=== PATIENT | male | born 1955 | race Caucasian/White ===

== ENCOUNTER 2017-12-24 19:26 | Emergency (ER) | payer MEDICARE ==
[2017-12-24 20:54] LABS: BASO % 0.6 % (0.0-1.0); EOS # 0.1 10^3/uL (0.0-0.50); HEMATOCRIT 42.9 % (42.0-52.0); HEMOGLOBIN 14.1 g/dl (13.5-17.5); IMMATURE GRANULOCYTE % 0.9 % (0-3.0); LYMPH # 1.9 10^3/uL (1.5-4.5); LYMPH % 27.8 % (24.0-44.0); MEAN CORPUSCULAR HEMOGLOBIN 27.4 pg (27.0-33.0); MEAN CORPUSCULAR HGB CONC 32.9 g/dl (32.0-36.5); MEAN CORPUSCULAR VOLUME 83.5 fl (80.0-96.0); MONO # 0.4 10^3/uL (0.0-0.8); MONO % 5.9 % (0.0-5.0); NEUTROPHILS # 4.2 10^3/uL (1.8-7.7); NEUTROPHILS % 62.8 % (36.0-66.0); PLATELET COUNT, AUTOMATED 199 10^3/uL (150-450); RED BLOOD COUNT 5.14 10^6/uL (4.30-6.10); RED CELL DISTRIBUTION WIDTH 13.8 % (11.5-14.5); WHITE BLOOD COUNT 6.7 10^3/uL (4.0-10.0)
[2017-12-24 21:10] LABS: INR 0.89; PARTIAL THROMBOPLASTIN TIME 26.4 SECONDS (25.4-37.6); PROTHROMBIN TIME 12.1 SECONDS (12.1-14.4)
[2017-12-24 21:12] LABS: ANION GAP 7 MEQ/L (8-16); BLOOD UREA NITROGEN 21 MG/DL (7-18); CALCIUM LEVEL 8.7 MG/DL (8.8-10.2); CARBON DIOXIDE LEVEL 26 MEQ/L (21-32); CHLORIDE LEVEL 111 MEQ/L (98-107); CK-MB VALUE MASS 1.4 NG/ML (<3.6); CPK CREATINE PHOSPHOKINASE 51 U/L (39-308); CREATININE FOR GFR 1.12 MG/DL (0.70-1.30); GLOMERULAR FILTRATION RATE > 60.0 (>49); GLUCOSE, FASTING 234 MG/DL (70-100); MB/CK RELATIVE INDEX 2.74 (< OR =4); POTASSIUM SERUM 4.8 MEQ/L (3.5-5.1); SODIUM LEVEL 144 MEQ/L (136-145); TROPONIN I < 0.02 NG/ML (< 0.10)
[2017-12-24] MEDS: dexameTHASONE 20 MG/5 ML VIAL (J1100) IV (21:13)
[2017-12-24] MEDS: ASPIRIN 325 MG TAB PO (21:13)
[2017-12-24] MEDS ORDERED: ISOVUE-370 76% 100ML VIAL (Q9967) As Ordered (21:31)
[2017-12-24] MEDS: ALBUTEROL SULFATE 2.5 MG/0.5 ML INH NEB SOLN NEB (22:49)
[2017-12-24] MEDS: HYDROMORPHONE HCL 0.5 MG/ 0.5 ML SYRINGE (J1170 PER 1) IV (23:03)
[2017-12-25] MEDS ORDERED: ALBUTEROL SULFATE 2.5 MG/0.5 ML INH NEB SOLN NEB (01:00)
[2017-12-25 01:02] LABS: CK-MB VALUE MASS 1.4 NG/ML (<3.6); CPK CREATINE PHOSPHOKINASE 34 U/L (39-308); MB/CK RELATIVE INDEX 4.11 (< OR =4); TROPONIN I < 0.02 NG/ML (< 0.10)
[2017-12-25] MEDS: ALBUTEROL SULFATE 2.5 MG/0.5 ML INH NEB SOLN NEB (01:05)
[2017-12-25] MEDS: HYDROMORPHONE HCL 0.5 MG/ 0.5 ML SYRINGE (J1170 PER 1) IV ×2 (01:46→03:28)
[2017-12-25 01:57] LABS: ABG BASE EXCESS -5.1 (-2.0-2.0); ABG HCO3 21.1 MEQ/L (22.0-26.0); ABG O2 SATURATION 98.7 % (95.0-99.0); ABG PARTIAL PRESSURE CO2 43.4 mmHg (35.0-45.0); ABG PARTIAL PRESSURE O2 137.1 mmHg (75.0-100.0); ABG STANDARD HCO3 20.3 MEQ/L (22.0-26.0); ABG TOTAL CO2 22.4 MEQ/L (23.0-31.0); ABG pH (ARTERIAL) 7.304 UNITS (7.350-7.450)
[2017-12-25 04:35] LABS: CPK CREATINE PHOSPHOKINASE 34 U/L (39-308); TROPONIN I < 0.02 NG/ML (< 0.10)
[2017-12-25 04:36] LABS: CK-MB VALUE MASS 1.6 NG/ML (<3.6)
== END 2017-12-25 05:40 | disposition left against medical advice (07) ==
LOC: M ED 12-25 05:40
DX: J44.1 Chronic obstructive pulmonary disease with (acute) exacerbation (principal); R07.89 Other chest pain; R06.02 Shortness of breath; I11.9 Hypertensive heart disease without heart failure; I48.91 Unspecified atrial fibrillation; E11.9 Type 2 diabetes mellitus without complications; E78.5 Hyperlipidemia, unspecified; N40.0 Benign prostatic hyperplasia without lower urinary tract symptoms; K21.9 Gastro-esophageal reflux disease without esophagitis; F17.200 Nicotine dependence, unspecified, uncomplicated; Z99.81 Dependence on supplemental oxygen; Z88.5 Allergy status to narcotic agent; Z88.8 Allergy status to other drugs, medicaments and biological substances; Z88.1 Allergy status to other antibiotic agents; Z79.899 Other long term (current) drug therapy; Z79.02 Long term (current) use of antithrombotics/antiplatelets; Z79.4 Long term (current) use of insulin; Z79.01 Long term (current) use of anticoagulants; Z95.5 Presence of coronary angioplasty implant and graft
CPT/HCPCS: J1100

== ENCOUNTER 2018-01-16 16:06 | Emergency (ER) | payer MEDICARE, OTHER ==
[2018-01-16] MEDS ORDERED: ONDANSETRON 4MG/2ML VIAL (J2405) As Ordered (17:01)
[2018-01-16] MEDS: fentaNYL 100 MCG/2 ML INJECTION (J3010) IV ×2 (17:05→18:19)
[2018-01-16 17:08] LABS: BASO # 0.1 10^3/uL (0.0-0.2); BASO % 0.8 % (0.0-1.0); EOS # 0.1 10^3/uL (0.0-0.50); EOS % 1.8 % (0.0-3.0); HEMATOCRIT 47.1 % (42.0-52.0); HEMOGLOBIN 15.9 g/dl (13.5-17.5); IMMATURE GRANULOCYTE % 1.2 % (0-3.0); LYMPH % 26.4 % (24.0-44.0); MEAN CORPUSCULAR HGB CONC 33.8 g/dl (32.0-36.5); MEAN CORPUSCULAR VOLUME 82.9 fl (80.0-96.0); MONO # 0.5 10^3/uL (0.0-0.8); MONO % 6.2 % (0.0-5.0); NEUTROPHILS # 4.8 10^3/uL (1.8-7.7); NEUTROPHILS % 63.6 % (36.0-66.0); PLATELET COUNT, AUTOMATED 270 10^3/uL (150-450); RED BLOOD COUNT 5.68 10^6/uL (4.30-6.10); RED CELL DISTRIBUTION WIDTH 14.3 % (11.5-14.5); WHITE BLOOD COUNT 7.6 10^3/uL (4.0-10.0)
[2018-01-16] MEDS: ONDANSETRON 4MG/2ML VIAL (J2405) IV (17:08)
[2018-01-16] MEDS: LORazepam 2 MG/ML VIAL (J2060) IV (17:21)
[2018-01-16 17:42] LABS: ALBUMIN 3.6 GM/DL (3.2-5.2); ALBUMIN/GLOBULIN RATIO 1.16 (1.00-1.93); ALKALINE PHOSPHATASE 95 U/L (45-117); ALT/SGPT 22 U/L (12-78); ANION GAP 11 MEQ/L (8-16); AST/SGOT 11 U/L (7-37); BILIRUBIN,DIRECT < 0.1 MG/DL (0.0-0.2); BILIRUBIN,TOTAL 0.3 MG/DL (0.2-1.0); BLOOD UREA NITROGEN 15 MG/DL (7-18); CALCIUM LEVEL 8.9 MG/DL (8.8-10.2); CARBON DIOXIDE LEVEL 20 MEQ/L (21-32); CHLORIDE LEVEL 111 MEQ/L (98-107); CPK CREATINE PHOSPHOKINASE 55 U/L (39-308); CREATININE FOR GFR 0.88 MG/DL (0.70-1.30); GLOMERULAR FILTRATION RATE > 60.0 (>49); GLUCOSE, FASTING 130 MG/DL (70-100); LIPASE 111 U/L (73-393); POTASSIUM SERUM 4.9 MEQ/L (3.5-5.1); SODIUM LEVEL 142 MEQ/L (136-145); TOTAL PROTEIN 6.7 GM/DL (6.4-8.2); TROPONIN I < 0.02 NG/ML (< 0.10)
[2018-01-16 17:48] LABS: CK-MB VALUE MASS < 1.0 NG/ML (<3.6); MB/CK RELATIVE INDEX 1.81 (< OR =4); NT-PRO BNP 70 PG/ML (<125)
[2018-01-16 17:50] LABS: INR 0.91; PROTHROMBIN TIME 12.3 SECONDS (12.1-14.4)
[2018-01-16] MEDS ORDERED: ISOVUE-370 76% 100ML VIAL (Q9967) As Ordered (17:59)
[2018-01-16] MEDS: HYDROMORPHONE HCL 0.5 MG/ 0.5 ML SYRINGE (J1170 PER 1) IV ×2 (18:48→21:03)
[2018-01-16 20:38] LABS: CPK CREATINE PHOSPHOKINASE 42 U/L (39-308); TROPONIN I < 0.02 NG/ML (< 0.10)
[2018-01-16 20:39] LABS: CK-MB VALUE MASS < 1.0 NG/ML (<3.6); MB/CK RELATIVE INDEX 2.38 (< OR =4)
== END 2018-01-16 22:50 | disposition short-term general hospital (02) ==
LOC: M ED 16:06
DX: I20.0 Unstable angina (principal); E11.9 Type 2 diabetes mellitus without complications; I11.0 Hypertensive heart disease with heart failure; I50.9 Heart failure, unspecified; J44.9 Chronic obstructive pulmonary disease, unspecified; I48.91 Unspecified atrial fibrillation; K21.9 Gastro-esophageal reflux disease without esophagitis; F41.9 Anxiety disorder, unspecified; F33.9 Major depressive disorder, recurrent, unspecified; Z87.19 Personal history of other diseases of the digestive system; Z95.5 Presence of coronary angioplasty implant and graft; Z79.899 Other long term (current) drug therapy; Z79.01 Long term (current) use of anticoagulants; Z88.1 Allergy status to other antibiotic agents; Z88.5 Allergy status to narcotic agent; Z88.8 Allergy status to other drugs, medicaments and biological substances; Z91.040 Latex allergy status
CPT/HCPCS: J2405

== ENCOUNTER 2018-01-31 03:03 | Inpatient (IN) | payer MEDICARE, OTHER ==
[2018-01-31 03:34] LABS: BASO # 0.1 10^3/uL (0.0-0.2); BASO % 0.3 % (0.0-1.0); EOS # 0.1 10^3/uL (0.0-0.50); EOS % 0.3 % (0.0-3.0); HEMATOCRIT 46.1 % (42.0-52.0); HEMOGLOBIN 15.4 g/dl (13.5-17.5); IMMATURE GRANULOCYTE % 1.1 % (0-3.0); LYMPH # 1.6 10^3/uL (1.5-4.5); LYMPH % 6.3 % (24.0-44.0); MEAN CORPUSCULAR HEMOGLOBIN 27.8 pg (27.0-33.0); MEAN CORPUSCULAR HGB CONC 33.4 g/dl (32.0-36.5); MEAN CORPUSCULAR VOLUME 83.4 fl (80.0-96.0); MONO # 0.8 10^3/uL (0.0-0.8); MONO % 3.1 % (0.0-5.0); NEUTROPHILS # 22.1 10^3/uL (1.8-7.7); NEUTROPHILS % 88.9 % (36.0-66.0); PLATELET COUNT, AUTOMATED 225 10^3/uL (150-450); RED BLOOD COUNT 5.53 10^6/uL (4.30-6.10); RED CELL DISTRIBUTION WIDTH 14.4 % (11.5-14.5); WHITE BLOOD COUNT 24.9 10^3/uL (4.0-10.0)
[2018-01-31 03:35] LABS: ABG BASE EXCESS -2.9 (-2.0-2.0); ABG HCO3 21.5 MEQ/L (22.0-26.0); ABG PARTIAL PRESSURE CO2 36.7 mmHg (35.0-45.0); ABG PARTIAL PRESSURE O2 71.3 mmHg (75.0-100.0); ABG TOTAL CO2 22.6 MEQ/L (23.0-31.0); ABG pH (ARTERIAL) 7.386 UNITS (7.350-7.450)
[2018-01-31] MEDS: IPRATROPIUM 0.5MG/ALBUTEROL 2.5MG INH SOL UD 3ML (DUONEB)(J7620) NEB ×8 (03:51→20:00)
[2018-01-31 04:09] LABS: LACTIC ACID SEPSIS PROTOCOL 2.5 MMOL/L (0.4-2.0)
[2018-01-31 04:09] LABS: ALBUMIN 3.6 GM/DL (3.2-5.2); ALBUMIN/GLOBULIN RATIO 1.03 (1.00-1.93); ALKALINE PHOSPHATASE 98 U/L (45-117); ALT/SGPT 21 U/L (12-78); ANION GAP 7 MEQ/L (8-16); AST/SGOT 11 U/L (7-37); BILIRUBIN,DIRECT < 0.1 MG/DL (0.0-0.2); BILIRUBIN,TOTAL 0.3 MG/DL (0.2-1.0); BLOOD UREA NITROGEN 12 MG/DL (7-18); CALCIUM LEVEL 8.8 MG/DL (8.8-10.2); CARBON DIOXIDE LEVEL 24 MEQ/L (21-32); CHLORIDE LEVEL 108 MEQ/L (98-107); CK-MB VALUE MASS < 1.0 NG/ML (<3.6); CPK CREATINE PHOSPHOKINASE 48 U/L (39-308); CREATININE FOR GFR 1.04 MG/DL (0.70-1.30); GLOMERULAR FILTRATION RATE > 60.0 (>49); GLUCOSE, FASTING 225 MG/DL (70-100); LIPASE 103 U/L (73-393); MB/CK RELATIVE INDEX 2.08 (< OR =4); POTASSIUM SERUM 4.2 MEQ/L (3.5-5.1); SODIUM LEVEL 139 MEQ/L (136-145); TOTAL PROTEIN 7.1 GM/DL (6.4-8.2); TROPONIN I < 0.02 NG/ML (< 0.10)
[2018-01-31] MEDS ORDERED: ISOVUE-370 76% 100ML VIAL (Q9967) As Ordered (04:51)
[2018-01-31] MEDS: fentaNYL 100 MCG/2 ML INJECTION (J3010) IV (05:21)
[2018-01-31] MEDS: PIPERACILLIN/TAZOBACTAM SOD 3.375 GM in D5W MINI-BAG PLUS 50 ML IV ×3 (05:28→18:24)
[2018-01-31] MEDS: NS 1,000 ML IV ×2 (05:45→15:15)
[2018-01-31 06:43] LABS: CK-MB VALUE MASS < 1.0 NG/ML (<3.6); CPK CREATINE PHOSPHOKINASE 47 U/L (39-308); MB/CK RELATIVE INDEX 2.13 (< OR =4); TROPONIN I < 0.02 NG/ML (< 0.10)
[2018-01-31] MEDS ORDERED: ONDANSETRON 4MG/2ML VIAL (J2405) IV (08:00)
[2018-01-31] MEDS ORDERED: BISACODYL 5 MG TAB PO (08:00)
[2018-01-31] MEDS ORDERED: ACETAMINOPHEN 500 MG TAB PO (08:00)
[2018-01-31] MEDS ORDERED: GLUCAGON FOR INJ 1 MG VIAL (J1610) SC (08:15)
[2018-01-31] MEDS ORDERED: DEXTROSE 50% 50 ML SYRINGE IV (08:15)
[2018-01-31] MEDS ORDERED: GLUCOSE 4 GM CHEW TABLET PO (08:15)
[2018-01-31 08:43] LABS: BEDSIDE GLUCOSE 360 MG/DL (80-115)
[2018-01-31] MEDS: ENOXAPARIN 40 MG/0.4 ML SYRINGE (J1650) SC (09:00)
[2018-01-31] MEDS: HumaLOG INSULIN (NovoLOG) PER UNIT SC ×4 (09:24→20:31)
[2018-01-31] MEDS: methylPREDNISolone INJ 40 MG/1 ML VIAL (J2920) IV ×3 (10:31→22:30)
[2018-01-31] MEDS: ASPIRIN 81 MG ENTERIC TAB PO (10:31)
[2018-01-31] MEDS: SENOKOT S TAB PO ×2 (10:32→20:19)
[2018-01-31] MEDS: CLOPIDOGREL 75 MG TAB PO (10:32)
[2018-01-31] MEDS: METOPROLOL TART 25 MG TABLET PO ×2 (10:32→20:20)
[2018-01-31] MEDS: TAMSULOSIN 0.4 MG CAP PO (10:32)
[2018-01-31] MEDS: GABAPENTIN 300 MG CAP PO ×3 (10:32→20:20)
[2018-01-31] MEDS: AMIODARONE 200 MG TAB (PACERONE) PO (10:32)
[2018-01-31] MEDS: LISINOPRIL 5 MG TAB PO (10:33)
[2018-01-31] MEDS: PANTOPRAZOLE 40MG TAB (PROTONIX) PO (10:33)
[2018-01-31] MEDS: LEVEMIR (INSULIN DETEMIR) 1 UNITS/0.01ML SC ×2 (10:33→20:31)
[2018-01-31 12:32] LABS: BEDSIDE GLUCOSE 417 MG/DL (80-115)
[2018-01-31] MEDS: traMADol 50 MG TAB PO ×2 (12:59→22:30)
[2018-01-31] MEDS: DICLOFENAC EPOLAMINE 1.3 % PATCH TOP (13:00)
[2018-01-31] MEDS: NS 500 ML IV (15:15)
[2018-01-31 18:04] LABS: BEDSIDE GLUCOSE 311 MG/DL (80-115)
[2018-01-31 19:40] LABS: LACTIC ACID SEPSIS PROTOCOL 3.7 MMOL/L (0.4-2.0)
[2018-01-31] MEDS: ATORVASTATIN 20 MG TAB PO (20:19)
[2018-01-31] MEDS: KETOROLAC 30 MG/ML VIAL (J1885) IV (20:19)
[2018-01-31] MEDS: MONTELUKAST 10 MG TAB PO (20:20)
[2018-01-31] MEDS: QUEtiapine FUMARATE 100 MG TAB PO (20:20)
[2018-01-31 20:38] LABS: BEDSIDE GLUCOSE 458 MG/DL (80-115)
[2018-01-31] MEDS: SYMBICORT 80/4.5MCG INHALER 6GM INH (21:00)
[2018-01-31] MEDS: ALBUTEROL SULFATE 2.5 MG/0.5 ML INH NEB SOLN NEB (22:48)
[2018-02-01] MEDS: PIPERACILLIN/TAZOBACTAM SOD 3.375 GM in D5W MINI-BAG PLUS 50 ML IV ×4 (00:25→17:46)
[2018-02-01] MEDS: IPRATROPIUM 0.5MG/ALBUTEROL 2.5MG INH SOL UD 3ML (DUONEB)(J7620) NEB ×4 (02:00→20:22)
[2018-02-01] MEDS: NS 1,000 ML IV ×2 (04:23→09:33)
[2018-02-01] MEDS: methylPREDNISolone INJ 40 MG/1 ML VIAL (J2920) IV ×4 (04:23→21:57)
[2018-02-01] MEDS: SYMBICORT 80/4.5MCG INHALER 6GM INH ×2 (08:14→21:00)
[2018-02-01 08:43] LABS: BASO % 0.1 % (0.0-1.0); HEMATOCRIT 38.8 % (42.0-52.0); IMMATURE GRANULOCYTE % 1.4 % (0-3.0); LYMPH # 0.7 10^3/uL (1.5-4.5); LYMPH % 3.6 % (24.0-44.0); MEAN CORPUSCULAR HGB CONC 33.5 g/dl (32.0-36.5); MEAN CORPUSCULAR VOLUME 83.6 fl (80.0-96.0); MONO # 0.3 10^3/uL (0.0-0.8); MONO % 1.4 % (0.0-5.0); NEUTROPHILS # 19.3 10^3/uL (1.8-7.7); NEUTROPHILS % 93.5 % (36.0-66.0); PLATELET COUNT, AUTOMATED 181 10^3/uL (150-450); RED BLOOD COUNT 4.64 10^6/uL (4.30-6.10); RED CELL DISTRIBUTION WIDTH 14.8 % (11.5-14.5); WHITE BLOOD COUNT 20.7 10^3/uL (4.0-10.0)
[2018-02-01 08:56] LABS: ANION GAP 8 MEQ/L (8-16); BLOOD UREA NITROGEN 17 MG/DL (7-18); CALCIUM LEVEL 8.7 MG/DL (8.8-10.2); CARBON DIOXIDE LEVEL 21 MEQ/L (21-32); CHLORIDE LEVEL 112 MEQ/L (98-107); CREATININE FOR GFR 1.07 MG/DL (0.70-1.30); GLOMERULAR FILTRATION RATE > 60.0 (>49); GLUCOSE, FASTING 318 MG/DL (70-100); POTASSIUM SERUM 4.9 MEQ/L (3.5-5.1); SODIUM LEVEL 141 MEQ/L (136-145)
[2018-02-01] MEDS: DICLOFENAC EPOLAMINE 1.3 % PATCH TOP (09:00)
[2018-02-01] MEDS: INFLUENZA QUADRIVALENT PF VACCINE 0.5ML SYRINGE (90686) IM (09:00)
[2018-02-01] MEDS: LEVEMIR (INSULIN DETEMIR) 1 UNITS/0.01ML SC ×2 (09:29→21:58)
[2018-02-01] MEDS: HumaLOG INSULIN (NovoLOG) PER UNIT SC ×4 (09:29→21:58)
[2018-02-01] MEDS: ENOXAPARIN 40 MG/0.4 ML SYRINGE (J1650) SC (09:29)
[2018-02-01] MEDS: PANTOPRAZOLE 40MG TAB (PROTONIX) PO (09:30)
[2018-02-01] MEDS: ASPIRIN 81 MG ENTERIC TAB PO (09:30)
[2018-02-01] MEDS: TAMSULOSIN 0.4 MG CAP PO (09:31)
[2018-02-01] MEDS: SENOKOT S TAB PO ×2 (09:31→21:56)
[2018-02-01] MEDS: CLOPIDOGREL 75 MG TAB PO (09:32)
[2018-02-01] MEDS: GABAPENTIN 300 MG CAP PO ×3 (09:32→21:56)
[2018-02-01] MEDS: AMIODARONE 200 MG TAB (PACERONE) PO (09:32)
[2018-02-01] MEDS: METOPROLOL TART 25 MG TABLET PO ×2 (09:32→21:56)
[2018-02-01 12:19] LABS: BEDSIDE GLUCOSE 355 MG/DL (80-115)
[2018-02-01] MEDS: HYDROMORPHONE HCL 0.5 MG/ 0.5 ML SYRINGE (J1170 PER 1) IV ×2 (15:35→21:57)
[2018-02-01 16:45] LABS: BEDSIDE GLUCOSE 307 MG/DL (80-115)
[2018-02-01] MEDS ORDERED: FUROSEMIDE 40 MG/4 ML VIAL (J1940) As Ordered (19:53)
[2018-02-01] MEDS: ASPIRIN 81 MG CHEW TABLET PO (19:58)
[2018-02-01] MEDS: FUROSEMIDE 40 MG/4 ML VIAL (J1940) IV ×2 (19:58→20:08)
[2018-02-01 20:24] LABS: ABG BASE EXCESS -2.7 (-2.0-2.0); ABG PARTIAL PRESSURE O2 274.7 mmHg (75.0-100.0); ABG STANDARD HCO3 22.3 MEQ/L (22.0-26.0); ABG TOTAL CO2 24.3 MEQ/L (23.0-31.0); ABG pH (ARTERIAL) 7.346 UNITS (7.350-7.450)
[2018-02-01 20:25] LABS: ABG O2 SATURATION 99.6 % (95.0-99.0)
[2018-02-01 20:34] LABS: HEMATOCRIT 40.6 % (42.0-52.0); HEMOGLOBIN 13.3 g/dl (13.5-17.5); MEAN CORPUSCULAR HEMOGLOBIN 27.6 pg (27.0-33.0); MEAN CORPUSCULAR HGB CONC 32.8 g/dl (32.0-36.5); MEAN CORPUSCULAR VOLUME 84.2 fl (80.0-96.0); PLATELET COUNT, AUTOMATED 211 10^3/uL (150-450); RED BLOOD COUNT 4.82 10^6/uL (4.30-6.10); RED CELL DISTRIBUTION WIDTH 15.1 % (11.5-14.5); WHITE BLOOD COUNT 22.9 10^3/uL (4.0-10.0)
[2018-02-01] MEDS: hydrOXYzine 10 MG TAB PO (20:48)
[2018-02-01 20:53] LABS: BEDSIDE GLUCOSE 321 MG/DL (80-115)
[2018-02-01 21:03] LABS: ALBUMIN/GLOBULIN RATIO 0.86 (1.00-1.93); ALKALINE PHOSPHATASE 74 U/L (45-117); ALT/SGPT 17 U/L (12-78); ANION GAP 10 MEQ/L (8-16); AST/SGOT 7 U/L (7-37); BILIRUBIN,TOTAL 0.2 MG/DL (0.2-1.0); BLOOD UREA NITROGEN 18 MG/DL (7-18); CALCIUM LEVEL 8.7 MG/DL (8.8-10.2); CARBON DIOXIDE LEVEL 21 MEQ/L (21-32); CHLORIDE LEVEL 111 MEQ/L (98-107); CPK CREATINE PHOSPHOKINASE 35 U/L (39-308); CREATININE FOR GFR 1.29 MG/DL (0.70-1.30); GLOMERULAR FILTRATION RATE > 60.0 (>49); GLUCOSE, FASTING 280 MG/DL (70-100); MB/CK RELATIVE INDEX 4.29 (< OR =4); POTASSIUM SERUM 4.3 MEQ/L (3.5-5.1); SODIUM LEVEL 142 MEQ/L (136-145); TOTAL PROTEIN 6.5 GM/DL (6.4-8.2); TROPONIN I < 0.02 NG/ML (< 0.10)
[2018-02-01 21:25] LABS: LACTIC ACID SEPSIS PROTOCOL 3.4 MMOL/L (0.4-2.0)
[2018-02-01] MEDS: MONTELUKAST 10 MG TAB PO (21:56)
[2018-02-01] MEDS: QUEtiapine FUMARATE 100 MG TAB PO (21:56)
[2018-02-01] MEDS: ATORVASTATIN 20 MG TAB PO (21:57)
[2018-02-02] MEDS: PIPERACILLIN/TAZOBACTAM SOD 3.375 GM in D5W MINI-BAG PLUS 50 ML IV ×4 (00:51→17:59)
[2018-02-02] MEDS: IPRATROPIUM 0.5MG/ALBUTEROL 2.5MG INH SOL UD 3ML (DUONEB)(J7620) NEB ×4 (02:19→20:00)
[2018-02-02] MEDS: methylPREDNISolone INJ 40 MG/1 ML VIAL (J2920) IV ×4 (04:11→21:33)
[2018-02-02] MEDS: HYDROMORPHONE HCL 0.5 MG/ 0.5 ML SYRINGE (J1170 PER 1) IV ×4 (04:11→21:33)
[2018-02-02 06:11] LABS: BASO % 0.1 % (0.0-1.0); HEMATOCRIT 38.2 % (42.0-52.0); HEMOGLOBIN 12.5 g/dl (13.5-17.5); IMMATURE GRANULOCYTE % 2.1 % (0-3.0); LYMPH # 0.5 10^3/uL (1.5-4.5); LYMPH % 2.8 % (24.0-44.0); MEAN CORPUSCULAR HEMOGLOBIN 27.8 pg (27.0-33.0); MEAN CORPUSCULAR HGB CONC 32.7 g/dl (32.0-36.5); MEAN CORPUSCULAR VOLUME 85.1 fl (80.0-96.0); MONO # 0.3 10^3/uL (0.0-0.8); MONO % 1.6 % (0.0-5.0); NEUTROPHILS # 15.8 10^3/uL (1.8-7.7); NEUTROPHILS % 93.4 % (36.0-66.0); PLATELET COUNT, AUTOMATED 184 10^3/uL (150-450); RED BLOOD COUNT 4.49 10^6/uL (4.30-6.10); RED CELL DISTRIBUTION WIDTH 15.2 % (11.5-14.5); WHITE BLOOD COUNT 16.9 10^3/uL (4.0-10.0)
[2018-02-02 06:28] LABS: ANION GAP 7 MEQ/L (8-16); BLOOD UREA NITROGEN 18 MG/DL (7-18); CALCIUM LEVEL 8.6 MG/DL (8.8-10.2); CARBON DIOXIDE LEVEL 24 MEQ/L (21-32); CHLORIDE LEVEL 111 MEQ/L (98-107); GLOMERULAR FILTRATION RATE > 60.0 (>49); GLUCOSE, FASTING 292 MG/DL (70-100); POTASSIUM SERUM 4.5 MEQ/L (3.5-5.1); SODIUM LEVEL 142 MEQ/L (136-145)
[2018-02-02] MEDS: SYMBICORT 80/4.5MCG INHALER 6GM INH ×2 (07:16→21:26)
[2018-02-02] MEDS ORDERED: SLF 3 ML SYR IV (08:15)
[2018-02-02] MEDS: LEVEMIR (INSULIN DETEMIR) 1 UNITS/0.01ML SC ×2 (08:37→21:56)
[2018-02-02] MEDS: ENOXAPARIN 40 MG/0.4 ML SYRINGE (J1650) SC (08:39)
[2018-02-02] MEDS: HumaLOG INSULIN (NovoLOG) PER UNIT SC ×4 (08:39→21:35)
[2018-02-02] MEDS: GABAPENTIN 300 MG CAP PO ×3 (08:40→21:36)
[2018-02-02] MEDS: CLOPIDOGREL 75 MG TAB PO (08:40)
[2018-02-02] MEDS: PANTOPRAZOLE 40MG TAB (PROTONIX) PO (08:40)
[2018-02-02] MEDS: SENOKOT S TAB PO ×2 (08:40→21:35)
[2018-02-02] MEDS: METOPROLOL TART 25 MG TABLET PO ×2 (08:40→21:36)
[2018-02-02] MEDS: AMIODARONE 200 MG TAB (PACERONE) PO (08:40)
[2018-02-02] MEDS: ASPIRIN 81 MG ENTERIC TAB PO (08:40)
[2018-02-02] MEDS: TAMSULOSIN 0.4 MG CAP PO (08:40)
[2018-02-02] MEDS: DICLOFENAC EPOLAMINE 1.3 % PATCH TOP (09:00)
[2018-02-02] MEDS ORDERED: INFLUENZA QUADRIVALENT PF VACCINE 0.5ML SYRINGE (90686) IM (09:00)
[2018-02-02 12:13] LABS: BEDSIDE GLUCOSE 338 MG/DL (80-115)
[2018-02-02] MEDS: SLF 3 ML SYR IV ×2 (13:14→21:37)
[2018-02-02] MEDS: hydrOXYzine 10 MG TAB PO (13:26)
[2018-02-02 17:31] LABS: BEDSIDE GLUCOSE 336 MG/DL (80-115)
[2018-02-02 20:22] LABS: BEDSIDE GLUCOSE 329 MG/DL (80-115)
[2018-02-02] MEDS: QUEtiapine FUMARATE 100 MG TAB PO (21:33)
[2018-02-02] MEDS: MONTELUKAST 10 MG TAB PO (21:35)
[2018-02-02] MEDS: ATORVASTATIN 20 MG TAB PO (21:35)
[2018-02-03] MEDS: PIPERACILLIN/TAZOBACTAM SOD 3.375 GM in D5W MINI-BAG PLUS 50 ML IV ×5 (00:33→23:51)
[2018-02-03] MEDS: IPRATROPIUM 0.5MG/ALBUTEROL 2.5MG INH SOL UD 3ML (DUONEB)(J7620) NEB ×4 (01:37→20:00)
[2018-02-03] MEDS: HYDROMORPHONE HCL 0.5 MG/ 0.5 ML SYRINGE (J1170 PER 1) IV ×5 (03:58→22:34)
[2018-02-03] MEDS: methylPREDNISolone INJ 40 MG/1 ML VIAL (J2920) IV ×2 (03:58→16:32)
[2018-02-03 06:29] LABS: BASO % 0.1 % (0.0-1.0); EOS % 0.1 % (0.0-3.0); HEMATOCRIT 39.3 % (42.0-52.0); HEMOGLOBIN 12.7 g/dl (13.5-17.5); IMMATURE GRANULOCYTE % 1.3 % (0-3.0); LYMPH # 0.6 10^3/uL (1.5-4.5); LYMPH % 5.4 % (24.0-44.0); MEAN CORPUSCULAR HEMOGLOBIN 27.6 pg (27.0-33.0); MEAN CORPUSCULAR HGB CONC 32.3 g/dl (32.0-36.5); MEAN CORPUSCULAR VOLUME 85.4 fl (80.0-96.0); MONO # 0.3 10^3/uL (0.0-0.8); MONO % 2.1 % (0.0-5.0); NEUTROPHILS # 10.8 10^3/uL (1.8-7.7); PLATELET COUNT, AUTOMATED 172 10^3/uL (150-450); RED CELL DISTRIBUTION WIDTH 15.1 % (11.5-14.5); WHITE BLOOD COUNT 11.9 10^3/uL (4.0-10.0)
[2018-02-03 06:43] LABS: ANION GAP 5 MEQ/L (8-16); BLOOD UREA NITROGEN 20 MG/DL (7-18); CALCIUM LEVEL 8.3 MG/DL (8.8-10.2); CARBON DIOXIDE LEVEL 25 MEQ/L (21-32); CHLORIDE LEVEL 111 MEQ/L (98-107); CREATININE FOR GFR 0.82 MG/DL (0.70-1.30); GLOMERULAR FILTRATION RATE > 60.0 (>49); GLUCOSE, FASTING 185 MG/DL (70-100); POTASSIUM SERUM 4.6 MEQ/L (3.5-5.1); SODIUM LEVEL 141 MEQ/L (136-145)
[2018-02-03 06:45] LABS: LACTIC ACID SEPSIS PROTOCOL 1.7 MMOL/L (0.4-2.0)
[2018-02-03] MEDS: SLF 3 ML SYR IV ×3 (06:58→21:06)
[2018-02-03] MEDS: GABAPENTIN 300 MG CAP PO ×3 (08:58→21:04)
[2018-02-03] MEDS: METOPROLOL TART 25 MG TABLET PO ×2 (08:58→21:10)
[2018-02-03] MEDS: TAMSULOSIN 0.4 MG CAP PO (08:58)
[2018-02-03] MEDS: AMIODARONE 200 MG TAB (PACERONE) PO (08:58)
[2018-02-03] MEDS: SENOKOT S TAB PO ×2 (08:58→21:04)
[2018-02-03] MEDS: hydrOXYzine 10 MG TAB PO (08:58)
[2018-02-03] MEDS: PANTOPRAZOLE 40MG TAB (PROTONIX) PO (08:58)
[2018-02-03] MEDS: CLOPIDOGREL 75 MG TAB PO (08:58)
[2018-02-03] MEDS: ASPIRIN 81 MG ENTERIC TAB PO (08:59)
[2018-02-03] MEDS: LEVEMIR (INSULIN DETEMIR) 1 UNITS/0.01ML SC ×2 (08:59→21:05)
[2018-02-03] MEDS: ENOXAPARIN 40 MG/0.4 ML SYRINGE (J1650) SC (08:59)
[2018-02-03] MEDS: DICLOFENAC EPOLAMINE 1.3 % PATCH TOP (09:00)
[2018-02-03] MEDS: HumaLOG INSULIN (NovoLOG) PER UNIT SC ×4 (09:00→21:07)
[2018-02-03] MEDS: SYMBICORT 80/4.5MCG INHALER 6GM INH ×2 (09:19→20:27)
[2018-02-03] MEDS: FUROSEMIDE 40 MG/4 ML VIAL (J1940) IV (09:24)
[2018-02-03 11:53] LABS: BEDSIDE GLUCOSE 232 MG/DL (80-115)
[2018-02-03 16:44] LABS: BEDSIDE GLUCOSE 299 MG/DL (80-115)
[2018-02-03 20:02] LABS: BEDSIDE GLUCOSE 344 MG/DL (80-115)
[2018-02-03] MEDS: MONTELUKAST 10 MG TAB PO (21:04)
[2018-02-03] MEDS: ATORVASTATIN 20 MG TAB PO (21:05)
[2018-02-03] MEDS: QUEtiapine FUMARATE 100 MG TAB PO (21:05)
[2018-02-04] MEDS: IPRATROPIUM 0.5MG/ALBUTEROL 2.5MG INH SOL UD 3ML (DUONEB)(J7620) NEB ×4 (01:43→20:00)
[2018-02-04] MEDS: HYDROMORPHONE HCL 0.5 MG/ 0.5 ML SYRINGE (J1170 PER 1) IV ×5 (04:34→23:09)
[2018-02-04] MEDS: methylPREDNISolone INJ 40 MG/1 ML VIAL (J2920) IV ×2 (04:35→16:41)
[2018-02-04 05:42] LABS: BASO % 0.4 % (0.0-1.0); EOS % 0.1 % (0.0-3.0); HEMATOCRIT 39.6 % (42.0-52.0); HEMOGLOBIN 12.9 g/dl (13.5-17.5); IMMATURE GRANULOCYTE % 3.6 % (0-3.0); LYMPH # 1.4 10^3/uL (1.5-4.5); LYMPH % 14.8 % (24.0-44.0); MEAN CORPUSCULAR HEMOGLOBIN 27.3 pg (27.0-33.0); MEAN CORPUSCULAR HGB CONC 32.6 g/dl (32.0-36.5); MEAN CORPUSCULAR VOLUME 83.7 fl (80.0-96.0); MONO # 0.5 10^3/uL (0.0-0.8); MONO % 5.2 % (0.0-5.0); NEUTROPHILS # 7.4 10^3/uL (1.8-7.7); NEUTROPHILS % 75.9 % (36.0-66.0); PLATELET COUNT, AUTOMATED 212 10^3/uL (150-450); RED BLOOD COUNT 4.73 10^6/uL (4.30-6.10); RED CELL DISTRIBUTION WIDTH 14.5 % (11.5-14.5); WHITE BLOOD COUNT 9.7 10^3/uL (4.0-10.0)
[2018-02-04] MEDS: PIPERACILLIN/TAZOBACTAM SOD 3.375 GM in D5W MINI-BAG PLUS 50 ML IV ×4 (05:48→23:08)
[2018-02-04] MEDS: SLF 3 ML SYR IV ×3 (05:48→20:24)
[2018-02-04 05:58] LABS: ANION GAP 6 MEQ/L (8-16); BLOOD UREA NITROGEN 21 MG/DL (7-18); CALCIUM LEVEL 8.6 MG/DL (8.8-10.2); CARBON DIOXIDE LEVEL 30 MEQ/L (21-32); CHLORIDE LEVEL 108 MEQ/L (98-107); CREATININE FOR GFR 0.74 MG/DL (0.70-1.30); GLOMERULAR FILTRATION RATE > 60.0 (>49); GLUCOSE, FASTING 105 MG/DL (70-100); POTASSIUM SERUM 3.6 MEQ/L (3.5-5.1); SODIUM LEVEL 144 MEQ/L (136-145)
[2018-02-04] MEDS: FUROSEMIDE 40 MG/4 ML VIAL (J1940) IV (08:31)
[2018-02-04] MEDS: ENOXAPARIN 40 MG/0.4 ML SYRINGE (J1650) SC (08:31)
[2018-02-04] MEDS: LEVEMIR (INSULIN DETEMIR) 1 UNITS/0.01ML SC ×2 (08:32→20:23)
[2018-02-04] MEDS: HumaLOG INSULIN (NovoLOG) PER UNIT SC ×4 (08:32→20:25)
[2018-02-04] MEDS: TAMSULOSIN 0.4 MG CAP PO (08:33)
[2018-02-04] MEDS: AMIODARONE 200 MG TAB (PACERONE) PO (08:33)
[2018-02-04] MEDS: PANTOPRAZOLE 40MG TAB (PROTONIX) PO (08:33)
[2018-02-04] MEDS: ASPIRIN 81 MG ENTERIC TAB PO (08:33)
[2018-02-04] MEDS: INFLUENZA QUADRIVALENT PF VACCINE 0.5ML SYRINGE (90686) IM (08:33)
[2018-02-04] MEDS: GABAPENTIN 300 MG CAP PO ×3 (08:33→20:24)
[2018-02-04] MEDS: METOPROLOL TART 25 MG TABLET PO ×2 (08:33→20:25)
[2018-02-04] MEDS: CLOPIDOGREL 75 MG TAB PO (08:33)
[2018-02-04] MEDS: SENOKOT S TAB PO ×2 (08:33→20:25)
[2018-02-04] MEDS: DICLOFENAC EPOLAMINE 1.3 % PATCH TOP (09:00)
[2018-02-04 11:34] LABS: BEDSIDE GLUCOSE 313 MG/DL (80-115)
[2018-02-04] MEDS: SYMBICORT 80/4.5MCG INHALER 6GM INH ×2 (12:04→21:02)
[2018-02-04] MEDS: hydrOXYzine 10 MG TAB PO ×2 (12:53→20:32)
[2018-02-04 16:52] LABS: BEDSIDE GLUCOSE 224 MG/DL (80-115)
[2018-02-04 19:47] LABS: BEDSIDE GLUCOSE 219 MG/DL (80-115)
[2018-02-04] MEDS: MONTELUKAST 10 MG TAB PO (20:24)
[2018-02-04] MEDS: QUEtiapine FUMARATE 100 MG TAB PO (20:24)
[2018-02-04] MEDS: ATORVASTATIN 20 MG TAB PO (20:24)
[2018-02-05] MEDS: IPRATROPIUM 0.5MG/ALBUTEROL 2.5MG INH SOL UD 3ML (DUONEB)(J7620) NEB (01:22)
[2018-02-05] MEDS: HYDROMORPHONE HCL 0.5 MG/ 0.5 ML SYRINGE (J1170 PER 1) IV ×3 (03:50→11:38)
[2018-02-05] MEDS: methylPREDNISolone INJ 40 MG/1 ML VIAL (J2920) IV (03:50)
[2018-02-05] MEDS: PIPERACILLIN/TAZOBACTAM SOD 3.375 GM in D5W MINI-BAG PLUS 50 ML IV (05:23)
[2018-02-05 05:27] LABS: HEMATOCRIT 40.6 % (42.0-52.0); HEMOGLOBIN 13.4 g/dl (13.5-17.5); MEAN CORPUSCULAR VOLUME 81.9 fl (80.0-96.0); PLATELET COUNT, AUTOMATED 222 10^3/uL (150-450); RED BLOOD COUNT 4.96 10^6/uL (4.30-6.10); RED CELL DISTRIBUTION WIDTH 14.4 % (11.5-14.5); WHITE BLOOD COUNT 9.7 10^3/uL (4.0-10.0)
[2018-02-05 05:28] LABS: POS COUNT POS FLAG; POSITIVE MORPH POS FLAG
[2018-02-05 05:29] LABS: ADD MANUAL DIFFER YES; DIFF SLIDE NUMBER 10
[2018-02-05] MEDS: SLF 3 ML SYR IV (05:44)
[2018-02-05 05:52] LABS: ANION GAP 11 MEQ/L (8-16); BLOOD UREA NITROGEN 19 MG/DL (7-18); CALCIUM LEVEL 8.3 MG/DL (8.8-10.2); CARBON DIOXIDE LEVEL 27 MEQ/L (21-32); CHLORIDE LEVEL 106 MEQ/L (98-107); CREATININE FOR GFR 0.79 MG/DL (0.70-1.30); GLOMERULAR FILTRATION RATE > 60.0 (>49); GLUCOSE, FASTING 176 MG/DL (70-100); POTASSIUM SERUM 4.1 MEQ/L (3.5-5.1); SODIUM LEVEL 144 MEQ/L (136-145)
[2018-02-05 06:06] LABS: LYMPHOCYTES 12 % (16-52); METAMYELOCYTES 1 % (0-0); MONOCYTES 3 % (0-8); MYELOCYTES 4 % (0-0); NEUTROPHILS 80 % (35-75); PLATELET ESTIMATE NORMAL (NORMAL)
[2018-02-05] MEDS: PANTOPRAZOLE 40MG TAB (PROTONIX) PO (08:09)
[2018-02-05] MEDS: TAMSULOSIN 0.4 MG CAP PO (08:09)
[2018-02-05] MEDS: SENOKOT S TAB PO (08:09)
[2018-02-05] MEDS: AMIODARONE 200 MG TAB (PACERONE) PO (08:09)
[2018-02-05] MEDS: CLOPIDOGREL 75 MG TAB PO (08:10)
[2018-02-05] MEDS: ASPIRIN 81 MG ENTERIC TAB PO (08:10)
[2018-02-05] MEDS: METOPROLOL TART 25 MG TABLET PO (08:10)
[2018-02-05] MEDS: FUROSEMIDE 40 MG/4 ML VIAL (J1940) IV (08:10)
[2018-02-05] MEDS: GABAPENTIN 300 MG CAP PO (08:10)
[2018-02-05] MEDS: ENOXAPARIN 40 MG/0.4 ML SYRINGE (J1650) SC (08:11)
[2018-02-05] MEDS: HumaLOG INSULIN (NovoLOG) PER UNIT SC (08:11)
[2018-02-05] MEDS: LEVEMIR (INSULIN DETEMIR) 1 UNITS/0.01ML SC (08:12)
[2018-02-05] MEDS: DICLOFENAC EPOLAMINE 1.3 % PATCH TOP (08:17)
[2018-02-05] MEDS: SYMBICORT 80/4.5MCG INHALER 6GM INH (11:20)
== END 2018-02-05 13:30 | disposition home or self-care (01) | DRG 193 ==
LOC: M PCU 02-01 15:17 → M ED 03:03 → M ED INP 07:57
DX: J18.9 Pneumonia, unspecified organism (principal); J96.21 Acute and chronic respiratory failure with hypoxia; I50.33 Acute on chronic diastolic (congestive) heart failure; E87.2 Acidosis; J44.1 Chronic obstructive pulmonary disease with (acute) exacerbation; J44.0 Chronic obstructive pulmonary disease with (acute) lower respiratory infection; E11.40 Type 2 diabetes mellitus with diabetic neuropathy, unspecified; I11.0 Hypertensive heart disease with heart failure; I25.10 Atherosclerotic heart disease of native coronary artery without angina pectoris; F41.9 Anxiety disorder, unspecified; F32.9 Major depressive disorder, single episode, unspecified; E78.5 Hyperlipidemia, unspecified; N40.0 Benign prostatic hyperplasia without lower urinary tract symptoms; Z95.2 Presence of prosthetic heart valve; I48.91 Unspecified atrial fibrillation; K21.9 Gastro-esophageal reflux disease without esophagitis; G47.33 Obstructive sleep apnea (adult) (pediatric); Z91.19 Patient's noncompliance with other medical treatment and regimen; Z79.899 Other long term (current) drug therapy; Z79.82 Long term (current) use of aspirin; Z88.5 Allergy status to narcotic agent; Z91.040 Latex allergy status; Z88.8 Allergy status to other drugs, medicaments and biological substances; F17.200 Nicotine dependence, unspecified, uncomplicated